=== PATIENT | male | born 1955 | race Caucasian/White ===

== ENCOUNTER 2017-05-27 16:05 | Emergency (ER) | payer BC ==
[2017-05-27 16:15] VITALS: O2SAT 95
[2017-05-27] MEDS ORDERED: NORCO 5/325 MG PO ONE (16:16)
--- NOTE | 2017-05-27 16:20 | ERPHSYRPT ---
- History of Present Illness Time Seen by Provider: 05/27/17 16:17 Source: patient Exam Limitations: no limitations Patient Subjective Stated Complaint: pt states 2 hours ago he fell backwards and landed on right wrist. pt c/o pain to right wrist. Triage Nursing Assessment: pt pink, warm, dry. deformity noted to right wrist. radial pulse strong. Physician History: Pt arrives with complaints of pulling on some limbs and fell backwards with an outstretched right hand. Pt localizes the pain around the wrist and lower part of the right arm. Pt describes the pain as sharp, constant, 9/10, worse with movement and pt has not taken any pain meds. Occurred: just prior to arrival Method of Injury: fell Quality: sharpness Severity of Pain-Max: severe Severity of Pain-Current: severe Extremities Pain Location: forearm: right, wrist: right Modifying Factors: Improves With: nothing Associated Symptoms: none Allergies/Adverse Reactions: No Known Drug Allergies Allergy (Verified 05/27/17 16:15) Home Medications: Metformin HCl 500 mg [Glucophage 500 MG] 1,000 mg PO BID 09/10/15 [History ] Metoprolol Tartrate 50 mg [Lopressor 50 MG] 25 mg PO BID 09/10/15 [History ] Minoxidil 20 mg PO BID 09/10/15 [History] Tramadol HCl 50 mg [Ultram 50 mg] 50 mg PO BID 09/10/15 [History] Doxazosin Mesylate 4 mg PO DAILY 10/11/15 [History] Escitalopram Oxalate 10 mg [Lexapro 10 MG] 10 mg PO DAILY 10/11/15 [History] Furosemide [Lasix] 40 mg PO BID 10/11/15 [History] Potassium Chloride 20 meq PO BID 10/11/15 [History] Hydralazine HCl 10 mg PO QID 05/27/17 [History] Hx Tetanus, Diphtheria Vaccination/Date Given: Yes (up to date) Hx Influenza Vaccination/Date Given: No Hx Pneumococcal Vaccination/Date Given: No Immunizations Up to Date: Yes - Review of Systems Constitutional: No Fever, No Chills Eyes: No Symptoms Ears, Nose, & Throat: No Symptoms Respiratory: No Cough, No Dyspnea Cardiac: No Chest Pain, No Edema, No Syncope Abdominal/Gastrointestinal: No Abdominal Pain, No Nausea, No Vomiting, No Diarrhea Genitourinary Symptoms: No Dysuria Musculoskeletal: Fall, Injury, Joint Pain, Myalgias, No Back Pain, No Neck Pain Skin: No Rash Neurological: No Dizziness, No Focal Weakness, No Sensory Changes Psychological: No Symptoms Endocrine: No Symptoms All Other Systems: Reviewed and Negative - Past Medical History Pertinent Past Medical History: Yes Neurological History: No Pertinent History ENT History: No Pertinent History Cardiac History: High Cholesterol, Hypertension Respiratory History: No Pertinent History Endocrine Medical History: Diabetes Type II Musculoskeletal History: No Pertinent History GI Medical History: GERD, Other History: No Pertinent History Psycho-Social History: No Pertinent History Male Reproductive Disorders: No Pertinent History - Past Surgical History Past Surgical History: No Neuro Surgical History: No Pertinent History Cardiac: No Pertinent History Respiratory: No Pertinent History Gastrointestinal: No Pertinent History Genitourinary: No Pertinent History Musculoskeletal: No Pertinent History Male Surgical History: No Pertinent History Other Surgical History: colonoscopy - Social History Smoking Status: Never smoker Exposure to second hand smoke: No Drug Use: none Patient Lives Alone: No - Nursing Vital Signs Nursing Vital Signs: Initial Vital Signs Temperature 99.3 F 05/27/17 16:11 Pulse Rate 75 05/27/17 16:11 Respiratory Rate 20 05/27/17 16:11 Blood Pressure 186/128 05/27/17 16:11 O2 Sat by Pulse Oximetry 95 05/27/17 16:11 Pain Scale Pain Intensity 7 - Physical Exam General Appearance: mild distress, alert Eyes, Ears, Nose, Throat Exam: moist mucous membranes Neck Exam: non-tender, supple Cardiovascular/Respiratory Exam: chest non-tender, normal breath sounds, regular rate/rhythm, no respiratory distress Abdominal Exam: non-tender, No guarding Back Exam: normal inspection, No vertebral tenderness Elbow/Forearm Exam: bone tenderness, soft tissue tenderness Wrist Exam: bone tenderness, limited ROM Neuro/Tendon Exam: normal sensation, normal motor functions Mental Status Exam: alert, oriented x 3, cooperative Skin Exam: normal color, warm, dry SpO2: 95 Oxygen Delivery: Room Air - Course Nursing assessment & vital signs reviewed: Yes Ordered Tests: Active Orders 24 hr Category Date Time Status Sling Application STAT Care 05/27/17 17:15 Ordered Splint STAT Care 05/27/17 17:15 Ordered FOREARM Stat Exams 05/27/17 Completed WRIST (MIN 3 VIEWS) Stat Exams 05/27/17 Completed Medication Summary Discontinued Medications Generic Name Dose Route Start Last Admin Trade Name Mir PRN Reason Stop Dose Admin Hydrocodone Bitart/Acetaminophen 1 tab 05/27/17 16:16 05/27/17 16:21 Cook 5/325 Mg PO 05/27/17 16:17 1 tab STAT ONE Administration Hydrocodone Bitart/Acetaminophen Confirm 05/27/17 16:21 Cook 5/325 Mg Administered 05/27/17 16:22 Dose 1 tab .ROUTE .STK-MED ONE - Progress Progress: unchanged Progress Note: 05/27/17 17:16 The wrist and forearm x ray do not show any fracture, however the patient is still having pain after receiving norco. Pt will be d/c home with script for percocet, wrist splint and sling as well F/U with PCP. - Departure Time of Disposition: 17:18 Departure Disposition: Home Clinical Impression: Wrist injury Qualifiers: Encounter type: initial encounter Laterality: right Qualified Code(s): S69.91XA - Unspecified injury of right wrist, hand and finger(s), initial encounter Condition: Stable Critical Care Time: No Referrals: NOEL LUNA [Primary Care Provider] - Instructions: Wrist Sprain Additional Instructions: Follow up with your primary care doctor next week if there is no improvement. Prescriptions: Oxycodone HCl/Acetaminophen [Percocet 5-325 mg Tablet] 1 each PO QID PRN #20 tablet PRN Reason: Pain
[2017-05-27] MEDS ORDERED: NORCO 5/325 MG ONE (16:21)
--- NOTE | 2017-05-27 16:46 | XRAY ---
Indication: Pain following fall. Comparison: None 2 views of the right forearm demonstrates small olecranon process spur and tiny mid to proximal soft tissue calcified granulomas. No other bony, articular, or soft tissue abnormalities. Right wrist reported separately.
--- NOTE | 2017-05-27 16:48 | XRAY ---
Indication: Pain following fall. Comparison: None 3 views of the right wrist demonstrates minimal degenerative changes of the first metacarpal multangular articulation. Widening of the scapholunate articulation concerning for underlying ligamentous tear. No other bony, articular, or soft tissue abnormalities.
[2017-05-27 17:15] VITALS: PULSE 78
[2017-05-27 17:31] VITALS: BP 160/99
== END 2017-05-27 17:30 | disposition home or self-care (01) ==
LOC: ED 16:05 → SUPCPDRO 16:05 → ED 17:30
DX: S69.91XA Unspecified injury of right wrist, hand and finger(s), initial encounter (principal); W18.30XA Fall on same level, unspecified, initial encounter
CPT/HCPCS: 73090; 73110; 99283; A4570; A9270-GY

== ENCOUNTER 2021-04-24 05:49 | Day surgery (SDC) | payer OTHER ==
[2021-04-24] MEDS ORDERED: Lactated Ringers 1,000 ML IV SCH (06:30)
[2021-04-24] MEDS ORDERED: DIPRIVAN 200 MG/20 ML IV ONE ×2 (07:23→07:47)
[2021-04-24 08:12] VITALS: O2SAT 95
[2021-04-24 08:29] VITALS: BP 157/103; PULSE 79
--- NOTE | 2021-04-24 09:07 | OP ---
SURGERY DATE/TIME: 04/24/2021 0724 PREOPERATIVE DIAGNOSIS: History of colon polyps. POSTOPERATIVE DIAGNOSIS: Rectal polyp. PROCEDURE: Colonoscopy. SURGEON: Joe Day M.D. ANESTHESIA: MAC by Anibal Luciano CRNA. ESTIMATED BLOOD LOSS: Minimal. SPECIMENS: Cold forceps polypectomy of rectal polyp. DESCRIPTION OF PROCEDURE: After informed written consent was obtained, the patient was taken to the endoscopy suite. He was placed in left lateral decubitus position. Anesthesia was titrated to desired level of consciousness. Digital rectal exam showed normal sphincter tone and no internal lesions. The scope was inserted into the rectum and sequentially the entire colonic mucosa was traversed. The level of cecum was reached and verified with direct visualization of the ileocecal valve. Upon withdrawal careful mucosal inspection revealed no gross abnormalities. In the proximal rectum there was a small sessile polyp which was grasped with forceps and removed in its entirety and sent for pathology. Retroflexion showed no internal lesions. The scope was removed and the patient was transferred to the recovery room in good condition. He has been advised to follow up in a week for pathology.
== END 2021-04-24 08:40 | disposition home or self-care (01) ==
LOC: SDC 05:49
PROVIDERS: ATTEND Family Medicine
DX: K62.1 Rectal polyp (principal); Z86.010 Personal history of colon polyps; Z09 Encounter for follow-up examination after completed treatment for conditions other than malignant neoplasm; E11.9 Type 2 diabetes mellitus without complications; I10 Essential (primary) hypertension; Z79.899 Other long term (current) drug therapy
CPT/HCPCS: 82947; 88305; J2704

== ENCOUNTER 2023-03-22 18:46 | Emergency (ER) | payer MEDICARE, OTHER ==
[2023-03-22] MEDS ORDERED: NORCO 5/325 MG PO ONE (20:02)
[2023-03-22] MEDS ORDERED: Hydromorphone 1 mg/ml Injection IM ONE (20:02)
[2023-03-22] MEDS ORDERED: Cyclobenzaprine 10 MG PO ONE (20:02)
[2023-03-22] MEDS ORDERED: Cyclobenzaprine 10 MG ONE (20:09)
[2023-03-22] MEDS ORDERED: Hydromorphone 1 mg/ml Injection ONE (20:09)
[2023-03-22] MEDS ORDERED: NORCO 5/325 MG ONE (20:11)
--- NOTE | 2023-03-22 20:14 | ERPHSYRPT ---
- History of Present Illness Source: patient Exam Limitations: no limitations Patient Subjective Stated Complaint: Pt c/o of 3 weeks of left back pain that radiates to his left hip and down his leg and from the knee down is numb Triage Nursing Assessment: Pt was brought to the ER by his , hypertensive, tachycardic, rates pain as 10/10 and states that he has never felt pain this way, pulses normal, came to the room in a wheelchair and helped hiself to the bed, skin n/w/d, pain is from the lower left back to his left hip and down his leg Physician History: Patient is a 67-year-old male presents with lower back pain. Reports pain started about 3 weeks ago. Patient reports pain is constant located on the left side of the lumbar spine. Pain is said to be ranging from 7 out of 10 to 10 out of 10, with radiation down his left leg. Patient reports he is able to ambulate but reports having pain with ambulation. Patient denies having any weakness, loss of sensation, recent falls or trauma. Reports he saw his PCP last week and had a CT scan and a x-ray scheduled. Reports doing both exams. Patient report he lives in [place], [place] but wanted to come to the ER close to his primary care doctor. Reports his last bowel movement was earlier today and has been urinating throughout the day. Allergies/Adverse Reactions: No Known Drug Allergies Allergy (Verified 03/22/23 19:17) Home Medications: Metformin HCl 500 mg [Glucophage 500 MG] 1,000 mg PO BID 09/10/15 [History] Tramadol HCl 50 mg [Ultram 50 mg] 100 mg PO TID 09/10/15 [History] Doxazosin Mesylate 4 mg PO DAILY 10/11/15 [History] Furosemide [Lasix] 40 mg PO BID 10/11/15 [History] Amlodipine Besylate 5 mg [Norvasc 5 mg] 5 mg PO DAILY 04/19/21 [History] Esomeprazole Magnesium 20 mg PO DAILY 04/19/21 [History] Glimepiride 4 mg [Amaryl 4 mg] 4 mg PO DAILY 04/19/21 [History] Magnesium Oxide 400 mg [Mag-Ox 400] 400 mg PO BID 04/19/21 [History] Oxybutynin Chloride 5 mg PO BID 04/19/21 [History] cloNIDine HCL [Clonidine HCl] 0.2 mg PO BID 04/19/21 [History] Gabapentin [Neurontin ] 300 mg PO QID 03/22/23 [History] Semaglutide [Ozempic] 0.25 mg SQ WEEKLY 03/22/23 [History] Sertraline HCl 50 mg [Zoloft 50 mg Tablet] 50 mg PO DAILY 03/22/23 [History] Tamsulosin HCl 0.4 mg [Flomax 0.4 MG] 0.4 mg PO DAILY 03/22/23 [History] Hx Tetanus, Diphtheria Vaccination/Date Given: Yes (up to date) Hx Influenza Vaccination/Date Given: No Hx Pneumococcal Vaccination/Date Given: No Travel Risk - International Travel Have you traveled outside of the country in past 3 weeks: No - Coronavirus Screening Are you exhibiting any of the following symptoms?: No Close contact with a COVID-19 positive Pt in past 14-21 Days: No - Vaccine Status Have you recieved a Covid-19 vaccination: Yes [employer]: [employer] - Vaccination Dates Date of 2cond Vaccination (if applicable): 2020 - Review of Systems Constitutional: No Fever, No Chills Eyes: No Symptoms Ears, Nose, & Throat: No Symptoms Respiratory: No Cough, No Dyspnea Cardiac: No Chest Pain, No Edema, No Syncope Abdominal/Gastrointestinal: No Abdominal Pain, No Nausea, No Vomiting, No Diarrhea Genitourinary Symptoms: No Dysuria Musculoskeletal: Back Pain, Myalgias, No Neck Pain Skin: No Rash Neurological: No Dizziness, No Focal Weakness, No Sensory Changes Psychological: No Symptoms Endocrine: No Symptoms All Other Systems: Reviewed and Negative - Past Medical History Pertinent Past Medical History: Yes Neurological History: No Pertinent History ENT History: No Pertinent History Cardiac History: Angina, High Cholesterol, Hypertension Respiratory History: No Pertinent History Endocrine Medical History: Diabetes Type II Musculoskeletal History: No Pertinent History GI Medical History: GERD History: No Pertinent History Psycho-Social History: No Pertinent History Male Reproductive Disorders: No Pertinent History - Past Surgical History Past Surgical History: No Neuro Surgical History: No Pertinent History Cardiac: No Pertinent History Respiratory: No Pertinent History Gastrointestinal: No Pertinent History Genitourinary: No Pertinent History Musculoskeletal: No Pertinent History Male Surgical History: No Pertinent History Other Surgical History: colonoscopy - Social History Smoking Status: Never smoker Exposure to second hand smoke: No Drug Use: none Patient Lives Alone: No - Nursing Vital Signs Nursing Vital Signs: Initial Vital Signs Temperature 98.2 F 03/22/23 19:02 Pulse Rate 101 H 03/22/23 19:02 Blood Pressure 164/140 03/22/23 19:02 O2 Sat by Pulse Oximetry 95 03/22/23 19:02 Pain Scale Pain Intensity [Left Lower 10 Lateral Back] Pain Intensity 6 - Physical Exam General Appearance: moderate distress, alert Eye Exam: PERRL/EOMI, eyes nml inspection Ears, Nose, Throat Exam: normal ENT inspection, TMs normal, pharynx normal, moist mucous membranes Neck Exam: normal inspection, non-tender, supple, full range of motion Respiratory Exam: normal breath sounds, lungs clear, No respiratory distress Cardiovascular Exam: regular rate/rhythm, normal heart sounds, normal peripheral pulses Gastrointestinal/Abdomen Exam: soft, normal bowel sounds, No tenderness, No mass Back Exam: normal inspection, point tenderness (At the L3-L4, mostly on the paraspinal muscles left side.), No normal range of motion (Limited range of motion with flexion and extension secondary to pain.), No CVA tenderness, No vertebral tenderness Extremity Exam: normal inspection, normal range of motion, pelvis stable Neurologic Exam: alert, oriented x 3, cooperative, normal mood/affect, nml cerebellar function, nml station & gait, sensation nml, No motor deficits Skin Exam: normal color, warm, dry, No rash Lymphatic Exam: No adenopathy SpO2: 95 Ordered Tests: Active Orders 24 hr Category Date Time Status UA W/RFX UR CULTURE Stat Lab 03/22/23 20:40 Completed Medication Summary Discontinued Medications Generic Name Dose Route Start Last Admin Trade Name Freq PRN Reason Stop Dose Admin Hydrocodone Bitart/Acetaminophen 2 tab 03/22/23 20:02 03/22/23 20:39 Hydrocodone/Apap 5/325 1 Tab Tablet PO 03/22/23 20:03 2 tab SENT HOME W/ PATIENT ONE Administration Hydrocodone Bitart/Acetaminophen Confirm 03/22/23 20:11 Hydrocodone/Apap 5/325 1 Tab Tablet Administered 03/22/23 20:12 Dose 2 tab .ROUTE .STK-MED ONE Cyclobenzaprine HCl 10 mg 03/22/23 20:02 03/22/23 20:29 Cyclobenzaprine Hcl 10 Mg Tablet PO 03/22/23 20:03 10 mg STAT ONE Administration Cyclobenzaprine HCl Confirm 03/22/23 20:09 Cyclobenzaprine Hcl 10 Mg Tablet Administered 03/22/23 20:10 Dose 10 mg .ROUTE .STK-MED ONE Hydromorphone HCl 0.5 mg 03/22/23 20:02 03/22/23 20:29 Hydromorphone 1 Mg/1ml Inj IM 03/22/23 20:03 0.5 mg STAT ONE Administration Hydromorphone HCl Confirm 03/22/23 20:09 Hydromorphone 1 Mg/1ml Inj Administered 03/22/23 20:10 Dose 1 mg .ROUTE .STK-MED ONE Nifedipine 10 mg 03/22/23 20:56 03/22/23 21:10 Nifedipine 10 Mg Capsule PO 03/22/23 20:57 10 mg ONCE ONE Administration Lab/Rad Data: Laboratory Results 03/22/23 Range/Units 20:40 Urine Color Yellow (Yellow) Urine Appearance Clear (Clear) Urine pH 5.5 (4.6-8.0) Ur Specific [place] 1.025 (1.005-1.030) Urine Protein 30 (Negative) Urine Glucose (UA) >=1000 A (Negative) mg/dL Urine Ketones Negative (Negative) Urine Blood Negative (Negative) Urine Nitrite Negative (Negative) Urine Bilirubin Negative (Negative) Urine Urobilinogen 0.2 (0.2) mg/dL Ur Leukocyte Esterase Negative (Negative) U Hyaline Cast (Auto) NONE SEEN (0-2) /LPF Urine Microscopic RBC 0-2 (0-5) /HPF Urine Microscopic WBC 0-2 (0-5) /HPF Ur Epithelial Cells None Seen (None Seen) /HPF Urine Bacteria None Seen (None Seen) /HPF Urine Culture Reflexed NO (NO) - Progress Progress: improved, pain not gone completely, re-examined (Patient reports improvement of his pain.) Progress Note: Reviewed patient's x-rays show that patient has mild osteoarthritis of the SI joints patient also has facet disease of L2-L3 through L5-S1 patient may also have grade 1 spondylolisthesis. Reports his PCP also ordered a lumbar spine CT scan that he completed in [place], [place]. Patient received 1 dose of Dilaudid 0.5 mg reports improvement of his pain. Patient has not elevated blood pressure readings patient reports his normal blood pressure readings at home are similar. Patient reports he has been taking his home medications but has not taken his Lasix. Reports he has a follow-up with his PCP this week. Denies having any headaches, chest pain, shortness of breath, changes in vision. Chest the importance of medication compliance. Will discharge patient with 2 doses of Nickerson 5-325. Advised patient to follow- up with PCP to review his CT scan results. 03/22/23 21:52 Counseled pt/family regarding: lab results, diagnosis, need for follow-up - Departure Departure Disposition: Home Clinical Impression: Spondylolisthesis, DDD (degenerative disc disease), lumbar Condition: Stable Critical Care Time: No Referrals: SIDNEY BOUDREAUX MD [Primary Care Provider] - Follow up/PCP as directed
[2023-03-22 20:48] LABS: Appearance Clear (Clear); Bacteria None Seen /HPF (None Seen); Bilirubin Negative (Negative); Blood Negative (Negative); Epithelial Cells None Seen /HPF (None Seen); Glucose, Urine >=1000 mg/dL (Negative); Hyaline Casts NONE SEEN /LPF (0-2); Ketones Negative (Negative); Leukocyte Esterase Negative (Negative); Nitrite Negative (Negative); Ph 5.5 (4.6-8.0); Protein,Urine Dip 30 (Negative); RBC 0-2 /HPF (0-5); Specific Gravity 1.025 (1.005-1.030); Urobilinogen 0.2 mg/dL (0.2); WBC 0-2 /HPF (0-5)
[2023-03-22 20:51] LABS: ADD URINE CULTURE? NO (NO)
[2023-03-22] MEDS ORDERED: PROCARDIA 10 MG PO ONE (20:56)
[2023-03-22 21:09] VITALS: PULSE 105
[2023-03-22 22:33] VITALS: BP 156/116; O2SAT 96
== END 2023-03-22 22:31 | disposition home or self-care (01) ==
LOC: ED 18:46
DX: M51.36 Other intervertebral disc degeneration, lumbar region (principal); M43.16 Spondylolisthesis, lumbar region; M54.50 Low back pain, unspecified; E78.5 Hyperlipidemia, unspecified; I10 Essential (primary) hypertension; E11.9 Type 2 diabetes mellitus without complications; Z79.84 Long term (current) use of oral hypoglycemic drugs; Z79.85 Long-term (current) use of injectable non-insulin antidiabetic drugs; Z79.899 Other long term (current) drug therapy
CPT/HCPCS: 81001; 96372; 99283; J1170; A9270-GY